=== PATIENT | male | born 2000 | race Caucasian/White ===

== ENCOUNTER 2024-12-14 23:15 | Inpatient (IN) | payer MEDICAID ==
[~2024-12-14] VITALS: Ht 167.6 cm; Wt 60.3 kg
[2024-12-14 23:20] VITALS: O2SAT 100
[2024-12-15 00:12] LABS: BASOPHILS % 0.7 % (0.0-2.0); EOSINOPHILS % 1.8 % (0.0-5.0); HEMATOCRIT. 44.3 % (42.0-52.0); HEMOGLOBIN. 15.0 g/dL (14.0-18.0); LYMPHOCYTES % 40.4 % (20.0-50.0); MEAN PLATELET VOLUME 7.1 fl (7.4-10.4); MONOCYTES % 11.5 % (2.0-8.0); NEUTROPHILS % 45.6 % (40.0-76.0); PLATELET 148 x1000/uL (130-400); RED BLOOD CELL COUNT 5.04 mill/uL (4.7-6.1); RED CELL DISTRIBUTION WIDTH 14.0 % (11.6-14.6)
[2024-12-15 00:13] LABS: CREATININE 0.8 mg/dL (0.6-1.3); UREA NITROGEN BLOOD < 5 mg/dL (9-23)
[2024-12-15 00:15] LABS: ASPARTATE AMINOTRANSFERASE 69 IU/L (<34); BILIRUBIN DIRECT 0.3 mg/dL (<=3.0); BILIRUBIN TOTAL 0.7 mg/dL (0.1-1.0); PROTEIN TOTAL 8.4 g/dL (6.0-8.3)
[2024-12-15] MEDS: SODIUM CHLORIDE 0.9% 1,000 ML IV ONE (01:32)
[2024-12-15] MEDS: MAGNESIUM/ALUMINUM HYDROXIDE/SIMETHICONE 30ML UDC PO NR (01:35)
[2024-12-15] MEDS: ONDANSETRON HCL 4MG/2ML INJ IV NR (01:35)
[2024-12-15] MEDS: MAGNESIUM/ALUMINUM HYDROXIDE/SIMETHICONE 30ML UDC PO ONE (01:36)
[2024-12-15] MEDS: ONDANSETRON HCL 4MG/2ML INJ IV ONE (01:37)
[2024-12-15 02:14] LABS: CLARITY URINE CLEAR (CLEAR); COLOR URINE YELLOW (YELLOW); GLUCOSE URINE NEGATIVE (NEGATIVE); KETONES URINE NEGATIVE (NEGATIVE); LEUKOCYTE ESTERASE URINE NEGATIVE (NEGATIVE); NITRITE URINE NEGATIVE (NEGATIVE); OCCULT BLOOD URINE NEGATIVE (NEGATIVE); PH URINE 6.0 (4.5-8.0); PROTEIN URINE NEGATIVE (NEGATIVE); SPECIFIC GRAVITY URINE 1.006 (1.005-1.030); UROBILINOGEN URINE 0.2 E.U./dL (0.2-1.0)
[2024-12-15 02:25] LABS: *AMPHETAMINES SCREEN URINE NEGATIVE (NEGATIVE)
[2024-12-15 02:26] LABS: *BARBITURATES SCREEN URINE NEGATIVE (NEGATIVE); *BENZODIAZEPINES SCREEN URINE NEGATIVE (NEGATIVE); *COCAINE SCREEN URINE NEGATIVE (NEGATIVE); CANNABINOID URINE SCREEN NEGATIVE (NEGATIVE); ECSTASY MDMA SCREEN URINE NEGATIVE (NEGATIVE); METHADONE URINE SCREEN NEGATIVE (NEGATIVE); OPIATES URINE SCREEN PRESUMPTIVE POSITIVE (NEGATIVE); PHENCYCLIDINE URINE SCREEN NEGATIVE (NEGATIVE)
[2024-12-15] MEDS: ACETAMINOPHEN 325MG TABLET PO ONE (02:44)
[2024-12-15] MEDS: PANTOPRAZOLE SODIUM 40 MG/VIAL IV ONE (02:44)
[2024-12-15 04:07] LABS: TROPONIN I HIGH SENSITIVITY 11 ng/L (3.0-53)
[2024-12-15] MEDS: IOHEXOL-300 100 ML BOTTLE ONE (05:22)
[2024-12-15] MEDS ORDERED: ONDANSETRON HCL 4MG/2ML INJ IV PRN (05:30)
[2024-12-15] MEDS ORDERED: IPRATROPIUM/ALBUTEROL 0.5-3(2.5)MG/3ML NEB HHN PRN (05:30)
[2024-12-15] MEDS ORDERED: MAGNESIUM/ALUMINUM HYDROXIDE/SIMETHICONE 30ML UDC PO PRN (05:30)
[2024-12-15] MEDS ORDERED: ACETAMINOPHEN 325MG TABLET PO PRN ×2 (05:30)
[2024-12-15] MEDS ORDERED: CLONIDINE 0.1MG TABLET PO PRN (05:30)
[2024-12-15] MEDS: MVI, ADULT NO.1 10 ML, FOLIC ACID 1 MG, THIAMINE HCL 100 MG in SODIUM CHLORIDE 0.9% 1,0... IV SCH (09:10)
[2024-12-15] MEDS: ENOXAPARIN 40MG/0.4ML SYR SUBCUT SCH (09:11)
[2024-12-15] MEDS: THIAMINE HCL 100MG TABLET ONE (09:13)
[2024-12-15 09:57] VITALS: BP 107/62; PULSE 70; RESP 20; TEMP 36.418
[2024-12-15] MEDS: CHLORDIAZEPOXIDE 25MG CAPSULE PO SCH (10:16)
[2024-12-15 10:48] VITALS: BP 107/62; PULSE 70; RESP 20; TEMP 36.4; O2SAT 98
[2024-12-15 12:00] VITALS: BP 123/71; PULSE 75; RESP 20; TEMP 36.5; O2SAT 97
[2024-12-15 16:00] VITALS: BP 123/74; PULSE 69; RESP 18; TEMP 36.4; O2SAT 96
[2024-12-15 20:00] VITALS: BP 137/78; PULSE 86; RESP 19; TEMP 36.4; O2SAT 99
[2024-12-16] VITALS: BP 124/84; PULSE 81; RESP 19; TEMP 36.3; O2SAT 98
[2024-12-16 04:00] VITALS: BP 121/71; PULSE 76; RESP 18; TEMP 36.3; O2SAT 99
[2024-12-16 08:00] VITALS: BP 134/90; PULSE 88; RESP 18; TEMP 32.1; O2SAT 98
[2024-12-16] MEDS: THIAMINE HCL 100MG TABLET PO SCH (10:40)
[2024-12-16 12:00] VITALS: BP 116/81; PULSE 80; RESP 18; TEMP 36; O2SAT 97
[2024-12-16 16:00] VITALS: BP 117/79; PULSE 71; RESP 18; TEMP 36.3; O2SAT 98
[2024-12-16 20:00] VITALS: BP 121/68; PULSE 78; RESP 20; TEMP 36.9; O2SAT 98
[2024-12-17] VITALS: BP_SYST 131; PULSE 80; RESP 18; O2SAT 97
[2024-12-17 04:00] VITALS: BP 124/62; PULSE 77; RESP 18; TEMP 36.8; O2SAT 98
[2024-12-17 08:00] VITALS: BP 124/82; PULSE 74; RESP 18; TEMP 36.7; O2SAT 100
[2024-12-17 12:00] VITALS: BP 118/75; PULSE 74; PULSE 86; RESP 18; TEMP 36.5; TEMP 36.6; O2SAT 100
[2024-12-17] MEDS ORDERED: CHLORDIAZEPOXIDE 10MG CAPSULE PO SCH (14:00)
[2024-12-17 16:00] VITALS: BP 122/77; PULSE 68; RESP 20; TEMP 36.9
[2024-12-17] MEDS: CHLORDIAZEPOXIDE 10MG CAPSULE PO SCH (17:01)
[2024-12-17 20:00] VITALS: BP 127/86; PULSE 96; RESP 20; TEMP 36.2; O2SAT 98
[2024-12-17 22:14] LABS: BASOPHILS % 1.1 % (0.0-2.0); EOSINOPHILS % 6.7 % (0.0-5.0); HEMATOCRIT. 44.0 % (42.0-52.0); HEMOGLOBIN. 14.9 g/dL (14.0-18.0); LYMPHOCYTES % 30.7 % (20.0-50.0); MEAN PLATELET VOLUME 8.8 fl (7.4-10.4); MONOCYTES % 5.0 % (2.0-8.0); NEUTROPHILS % 56.5 % (40.0-76.0); PLATELET 98 x1000/uL (130-400); RED BLOOD CELL COUNT 4.94 mill/uL (4.7-6.1); RED CELL DISTRIBUTION WIDTH 14.6 % (11.6-14.6)
[2024-12-17 22:29] LABS: CREATININE 0.9 mg/dL (0.6-1.3)
[2024-12-17 22:30] LABS: UREA NITROGEN BLOOD 9 mg/dL (9-23)
[2024-12-18] VITALS: BP 123/79; PULSE 92; RESP 20; TEMP 36.2; O2SAT 98
[2024-12-18 04:00] VITALS: BP 116/75; PULSE 59; RESP 18; TEMP 36.2; O2SAT 99
[2024-12-18 06:40] LABS: INR 1.0
[2024-12-18 06:42] LABS: BASOPHILS % 0.8 % (0.0-2.0); EOSINOPHILS % 7.5 % (0.0-5.0); HEMATOCRIT. 44.2 % (42.0-52.0); HEMOGLOBIN. 14.8 g/dL (14.0-18.0); LYMPHOCYTES % 33.3 % (20.0-50.0); MEAN PLATELET VOLUME 9.1 fl (7.4-10.4); MONOCYTES % 5.0 % (2.0-8.0); NEUTROPHILS % 53.4 % (40.0-76.0); PLATELET 94 x1000/uL (130-400); RED BLOOD CELL COUNT 5.05 mill/uL (4.7-6.1); RED CELL DISTRIBUTION WIDTH 14.7 % (11.6-14.6)
[2024-12-18 06:44] LABS: CREATININE 0.8 mg/dL (0.6-1.3)
[2024-12-18 06:45] LABS: UREA NITROGEN BLOOD 9 mg/dL (9-23)
[2024-12-18 06:47] LABS: PHOSPHORUS 4.2 mg/dL (2.5-4.9)
[2024-12-18 08:00] VITALS: BP 112/69; PULSE 69; RESP 18; TEMP 36.5; O2SAT 100
[2024-12-18 12:00] VITALS: BP 108/71; PULSE 72; RESP 18; TEMP 36.4; O2SAT 99
[2024-12-18] MEDS ORDERED: LOPERAMIDE 2MG/15ML UDC PO PRN (15:30)
[2024-12-18 16:00] VITALS: BP 120/77; PULSE 79; RESP 18; TEMP 37.1; O2SAT 99
[2024-12-18] MEDS ORDERED: FAMO40TA7 MT (18:17)
[2024-12-18 19:35] VITALS: BP 140/94; PULSE 90; RESP 16; TEMP 36.2; O2SAT 98
== END 2024-12-18 20:45 | disposition home or self-care (01) | DRG 52 ==
LOC: ER 23:15 → 8WST 12-15 05:09 → EDBEDREQSVC 12-15 05:13 → EDBEDREQTM 12-15 05:13 → EDBEDREQ 12-15 05:13 → ENRESERV 12-15 07:07
PROVIDERS: ADMIT Student in an Organized Health Care Education/Training Program; ATTEND Student in an Organized Health Care Education/Training Program
DX: G92.8 Other toxic encephalopathy (principal); K92.0 Hematemesis; F32.A Depression, unspecified; K76.0 Fatty (change of) liver, not elsewhere classified; F10.139 Alcohol abuse with withdrawal, unspecified; R16.0 Hepatomegaly, not elsewhere classified; N13.30 Unspecified hydronephrosis; Y90.8 Blood alcohol level of 240 mg/100 ml or more; F10.129 Alcohol abuse with intoxication, unspecified; K22.9 Disease of esophagus, unspecified; K29.20 Alcoholic gastritis without bleeding
CPT/HCPCS: 36415; 71045; 74177; 76700; 80048; 80076; 80305; 80320; 81003; 82550; 83735; 84100; 84484; 85025; 93005; 96361; 96374; 99285; A4606; G0378; J1650; J2405; J2470; J3411; J3490; J7030; Q9967; G0480

== ENCOUNTER 2025-02-02 22:21 | Emergency (ER) | payer MEDICAID ==
[~2025-02-02] VITALS: Ht 165.1 cm; Wt 70.0 kg
[~2025-02-02 22:21] MED LIST: FAMO40TA7 MT
[2025-02-02 22:23] VITALS: O2SAT 99
[2025-02-02] MEDS: SODIUM CHLORIDE 0.9% 1,000 ML IV ONE (23:17)
[2025-02-02] MEDS: METOCLOPRAMIDE HCL 10MG/2ML VIAL IV ONE (23:17)
[2025-02-02 23:29] LABS: BASOPHILS % 0.8 % (0.0-2.0); EOSINOPHILS % 2.4 % (0.0-5.0); HEMATOCRIT. 43.1 % (42.0-52.0); HEMOGLOBIN. 14.8 g/dL (14.0-18.0); LYMPHOCYTES % 43.5 % (20.0-50.0); MEAN PLATELET VOLUME 6.8 fl (7.4-10.4); MONOCYTES % 4.1 % (2.0-8.0); NEUTROPHILS % 49.2 % (40.0-76.0); PLATELET 360 x1000/uL (130-400); RED BLOOD CELL COUNT 4.92 mill/uL (4.7-6.1); RED CELL DISTRIBUTION WIDTH 13.8 % (11.6-14.6)
[2025-02-02 23:39] LABS: CREATININE 0.8 mg/dL (0.6-1.3); UREA NITROGEN BLOOD 8 mg/dL (9-23)
[2025-02-02 23:40] LABS: TROPONIN I HIGH SENSITIVITY 18 ng/L (3.0-53)
[2025-02-02 23:41] LABS: ASPARTATE AMINOTRANSFERASE 32 IU/L (<34); BILIRUBIN DIRECT < 0.1 mg/dL (<=3.0)
[2025-02-02 23:42] LABS: BILIRUBIN TOTAL 0.4 mg/dL (0.1-1.0); PROTEIN TOTAL 7.4 g/dL (6.0-8.3)
[2025-02-03 00:03] LABS: CLARITY URINE CLEAR (CLEAR); COLOR URINE YELLOW (YELLOW); GLUCOSE URINE NEGATIVE (NEGATIVE); KETONES URINE NEGATIVE (NEGATIVE); LEUKOCYTE ESTERASE URINE NEGATIVE (NEGATIVE); NITRITE URINE NEGATIVE (NEGATIVE); OCCULT BLOOD URINE NEGATIVE (NEGATIVE); PH URINE 5.5 (4.5-8.0); PROTEIN URINE NEGATIVE (NEGATIVE); SPECIFIC GRAVITY URINE 1.008 (1.005-1.030); UROBILINOGEN URINE 0.2 E.U./dL (0.2-1.0)
[2025-02-03 00:14] LABS: *AMPHETAMINES SCREEN URINE NEGATIVE (NEGATIVE); *BARBITURATES SCREEN URINE NEGATIVE (NEGATIVE); *BENZODIAZEPINES SCREEN URINE NEGATIVE (NEGATIVE); *COCAINE SCREEN URINE NEGATIVE (NEGATIVE)
[2025-02-03 00:15] LABS: CANNABINOID URINE SCREEN NEGATIVE (NEGATIVE); ECSTASY MDMA SCREEN URINE NEGATIVE (NEGATIVE); METHADONE URINE SCREEN NEGATIVE (NEGATIVE); OPIATES URINE SCREEN NEGATIVE (NEGATIVE); PHENCYCLIDINE URINE SCREEN NEGATIVE (NEGATIVE)
[2025-02-03] MEDS: SODIUM CHLORIDE 0.9% 1,000 ML IV ONE (01:15)
[2025-02-03 02:20] VITALS: BP 109/67; PULSE 111; RESP 17; TEMP 36.5; O2SAT 98
== END 2025-02-03 02:29 | disposition home or self-care (01) ==
LOC: ER 22:21 → CMPBEDREQ 02-03 07:17
DX: F10.229 Alcohol dependence with intoxication, unspecified (principal); Z79.899 Other long term (current) drug therapy; Y90.9 Presence of alcohol in blood, level not specified
CPT/HCPCS: 80076; 80305; 80048; 81003; 80320; 83880; 83690; 83735; 85025; 84484; 36415; 71045; 96374; 99285; 93005; 96361; J2765; J7030 ×2; 90471; G0480